=== PATIENT | female | born 1945 | race Caucasian/White ===

== ENCOUNTER → 2018-06-12 | Outpatient (CLI) | payer MEDICARE, OTHER ==
[~2018-06-12] MED LIST: ACET325 PO; ASCO500 PO; BENTYL20 MG PO; BENZ100A PO; Benefiber98 GM; CEPH500 PO; CO Q-10400 MG PO; CYAN500 PO; CYCL10 PO; Coughtab200 MG PO; DABI150C PO; DIAZ5 PO; ERGO400 PO; Elmiron100 MG; GLUCOSAMINE &1 EACH PO; HYDACE5 PO; HYDR1TAB94 PO; Hydrocodone Bita5 GM; IPRAIS NEB; KETO10 PO; LAVAP17G; LAVAP17G PO; LEVFLO500 PO; METF500 PO; MULTAQ; NEBI10 PO; NEBI5 PO; NYST100000 PO; OMEG1CAP30 PO; PENVK500 PO; PRED10 PO; RXHYDACE PO; SIME80CH PO; UBID10 PO; Ultram50 MG PO
[2018-06-12 17:03] LABS: BASOPHILS ABSOLUTE AUTO 0.04 K/mm3 (0.00-0.23); BASOPHILS PERCENT AUTO 1 % (0-2); EOSINOPHILS PERCENT AUTO 5 % (0-6); Hematocrit 34.7 % (33.0-51.0); Hemoglobin 11.6 g/dL (11.5-16.0); IMMATURE GRAN ABSOLUTE AUTO 0.01 K/mm3 (0.00-0.10); IMMATURE GRAN PERCENT AUTO 0 % (0-1); LYMPHOCYTES ABSOLUTE AUTO 1.51 K/mm3 (0.84-5.20); LYMPHOCYTES PERCENT AUTO 27 % (21-46); MONOCYTES ABSOLUTE AUTO 0.55 K/mm3 (0.16-1.47); MONOCYTES PERCENT AUTO 10 % (4-13); Mean Corpuscular HGB 31.7 pg (26.0-34.0); Mean Corpuscular HGB Conc 33.4 g/dL (31.5-36.5); Mean Corpuscular Volume 95 fL (80-100); Mean Platelet Volume 12.1 fL (9.1-12.4); NEUTROPHILS ABSOLUTE AUTO 3.24 K/mm3 (1.96-9.15); NEUTROPHILS PERCENT AUTO 57 % (41-73); Platelet Count 176 K/mm3 (150-400); RDW Coefficient Variation 12.6 % (11.7-14.2); RDW Standard Deviation 43.8 fL (35.1-46.3); Red Blood Cell Count 3.66 M/mm3 (3.80-5.20); White Blood Cell Count 5.65 K/mm3 (4.00-11.30)
[2018-06-12 17:10] LABS: Calcium, Blood 9.2 mg/dL (8.5-10.1); Creatinine, Blood 1.05 mg/dL (0.40-1.00); Potassium, Blood 4.3 mmol/L (3.5-5.5)
== END | disposition home or self-care (01) ==
LOC: LAB SHORT 16:58 → LAB EV 16:58
PROVIDERS: Physician Assistant Surgical
DX: R42 Dizziness and giddiness (principal); R53.83 Other fatigue
CPT/HCPCS: 80048; 84443; 85025

== ENCOUNTER 2018-08-05 23:16 | Emergency (ER) | payer MEDICARE, OTHER ==
[~2018-08-05] VITALS: Ht 157.5 cm; Wt 90.7 kg
[2018-08-05] MEDS ORDERED: GABA100 (23:41)
[2018-08-05 23:47] LABS: BASOPHILS ABSOLUTE AUTO 0.03 K/mm3 (0.00-0.23); BASOPHILS PERCENT AUTO 1 % (0-2); EOSINOPHILS ABSOLUTE AUTO 0.28 K/mm3 (0.00-0.68); EOSINOPHILS PERCENT AUTO 6 % (0-6); Hematocrit 35.3 % (33.0-51.0); Hemoglobin 11.4 g/dL (11.5-16.0); IMMATURE GRAN ABSOLUTE AUTO 0.01 K/mm3 (0.00-0.10); IMMATURE GRAN PERCENT AUTO 0 % (0-1); LYMPHOCYTES ABSOLUTE AUTO 1.19 K/mm3 (0.84-5.20); LYMPHOCYTES PERCENT AUTO 24 % (21-46); MONOCYTES ABSOLUTE AUTO 0.41 K/mm3 (0.16-1.47); MONOCYTES PERCENT AUTO 8 % (4-13); Mean Corpuscular HGB 30.9 pg (26.0-34.0); Mean Corpuscular HGB Conc 32.3 g/dL (31.5-36.5); Mean Corpuscular Volume 96 fL (80-100); Mean Platelet Volume 11.8 fL (9.1-12.4); NEUTROPHILS ABSOLUTE AUTO 3.12 K/mm3 (1.96-9.15); NEUTROPHILS PERCENT AUTO 62 % (41-73); Platelet Count 149 K/mm3 (150-400); RDW Coefficient Variation 12.8 % (11.7-14.2); RDW Standard Deviation 45.2 fL (35.1-46.3); Red Blood Cell Count 3.69 M/mm3 (3.80-5.20); White Blood Cell Count 5.04 K/mm3 (4.00-11.30)
[2018-08-06 00:03] LABS: Alanine Aminotransfer (ALT/SGP 22 U/L (12-78); Albumin, Blood 3.3 g/dL (3.4-5.0); Albumin/Globulin Ratio 0.8 (0.8-1.8); Alk Phos 63 U/L (50-136); Anion Gap 8 mmol/L (6-16); Aspartate Aminotrans (AST/SGOT 24 U/L (12-37); Bilirubin, Total 0.3 mg/dL (0.1-1.0); Blood Urea Nitrogen 25 mg/dL (8-24); Bun/Creatinine Ratio 26.3 (12.0-20.0); CO2, Blood 26 mmol/L (21-32); Calcium, Blood 8.7 mg/dL (8.5-10.1); Chloride, Blood 107 mmol/L (98-108); Creatinine, Blood 0.95 mg/dL (0.40-1.00); Ethanol (Alcohol), Blood, Med <3 mg/dL; Globulin, Blood 3.9 g/dL (2.2-4.0); Glomerular Filtration Rate >60 (60-); Glucose, Blood 170 mg/dL (70-99); Potassium, Blood 3.9 mmol/L (3.5-5.5); Sodium, Blood 141 mmol/L (136-145); Total Protein, Blood 7.2 g/dL (6.4-8.2); Troponin I <0.015 ng/mL (0.000-0.040)
[2018-08-06] MEDS ORDERED: Zofran8 MG PO (00:59)
[2018-08-06] MEDS ORDERED: MECL12.5 PO (00:59)
== END 2018-08-06 01:20 | disposition home or self-care (01) ==
LOC: ER 23:16
PROVIDERS: Emergency Medicine
DX: R42 Dizziness and giddiness (principal); I48.91 Unspecified atrial fibrillation; E11.9 Type 2 diabetes mellitus without complications; Z79.899 Other long term (current) drug therapy; Z79.84 Long term (current) use of oral hypoglycemic drugs
CPT/HCPCS: 36415; 70450; 80053; 84443; 84484; 85025; 93005; 93010; 96361; 96374; 96375; 99284-25; G0480; J1200; J2765; J7030

== ENCOUNTER 2018-12-25 14:33 | Emergency (ER) | payer MEDICARE, OTHER ==
[~2018-12-25] VITALS: Ht 157.5 cm; Wt 99.8 kg
[~2018-12-25 14:33] MED LIST changes: +GABA100; +MECL12.5 PO; +Zofran8 MG PO
[2018-12-25 15:15] LABS: BASOPHILS ABSOLUTE AUTO 0.06 K/mm3 (0.00-0.23); BASOPHILS PERCENT AUTO 1 % (0-2); EOSINOPHILS ABSOLUTE AUTO 0.45 K/mm3 (0.00-0.68); EOSINOPHILS PERCENT AUTO 8 % (0-6); Hematocrit 38.7 % (33.0-51.0); Hemoglobin 12.3 g/dL (11.5-16.0); IMMATURE GRAN ABSOLUTE AUTO 0.01 K/mm3 (0.00-0.10); IMMATURE GRAN PERCENT AUTO 0 % (0-1); LYMPHOCYTES ABSOLUTE AUTO 1.47 K/mm3 (0.84-5.20); LYMPHOCYTES PERCENT AUTO 25 % (21-46); MONOCYTES ABSOLUTE AUTO 0.61 K/mm3 (0.16-1.47); MONOCYTES PERCENT AUTO 10 % (4-13); Mean Corpuscular HGB 30.1 pg (26.0-34.0); Mean Corpuscular HGB Conc 31.8 g/dL (31.5-36.5); Mean Corpuscular Volume 95 fL (80-100); Mean Platelet Volume 12.2 fL (9.1-12.4); NEUTROPHILS ABSOLUTE AUTO 3.25 K/mm3 (1.96-9.15); NEUTROPHILS PERCENT AUTO 56 % (41-73); Platelet Count 195 K/mm3 (150-400); RDW Coefficient Variation 13.3 % (11.7-14.2); RDW Standard Deviation 46.7 fL (35.1-46.3); Red Blood Cell Count 4.09 M/mm3 (3.80-5.20); White Blood Cell Count 5.85 K/mm3 (4.00-11.30)
[2018-12-25 15:34] LABS: Alanine Aminotransfer (ALT/SGP 98 U/L (12-78); Albumin, Blood 3.4 g/dL (3.4-5.0); Albumin/Globulin Ratio 0.8 (0.8-1.8); Alk Phos 159 U/L (50-136); Anion Gap 10 mmol/L (6-16); Aspartate Aminotrans (AST/SGOT 72 U/L (12-37); Bilirubin, Total 0.9 mg/dL (0.1-1.0); Blood Urea Nitrogen 18 mg/dL (8-24); Bun/Creatinine Ratio 20.2 (12.0-20.0); CO2, Blood 24 mmol/L (21-32); Calcium, Blood 9.2 mg/dL (8.5-10.1); Chloride, Blood 106 mmol/L (98-108); Creatinine, Blood 0.89 mg/dL (0.40-1.00); Globulin, Blood 4.4 g/dL (2.2-4.0); Glomerular Filtration Rate >60 (60-); Glucose, Blood 109 mg/dL (70-99); Potassium, Blood 4.9 mmol/L (3.5-5.5); Sodium, Blood 140 mmol/L (136-145); Total Protein, Blood 7.8 g/dL (6.4-8.2)
[2018-12-25] MEDS ORDERED: NEBI10 PO (16:52)
[2018-12-25] MEDS ORDERED: METF500C PO (16:53)
[2018-12-25] MEDS ORDERED: DABI150C PO (16:53)
[2018-12-25] MEDS ORDERED: LISI5 PO (16:53)
[2018-12-25] MEDS ORDERED: GABA300 PO (16:53)
[2018-12-25] MEDS ORDERED: ATOR40TA PO (16:54)
[2018-12-25] MEDS ORDERED: UBID10 PO (16:55)
[2019-01-22] MEDS ORDERED: MAGOXI400 PO (14:52)
[2019-01-22] MEDS ORDERED: Zanaflex4 M1 PO (14:53)
[2019-01-22] MEDS ORDERED: LINZESS290 MCG PO (14:54)
== END 2018-12-25 17:29 | disposition home or self-care (01) ==
LOC: ER 14:33
PROVIDERS: Physician Assistant
DX: K59.00 Constipation, unspecified (principal); E11.9 Type 2 diabetes mellitus without complications; I48.91 Unspecified atrial fibrillation; Z88.5 Allergy status to narcotic agent; Z88.2 Allergy status to sulfonamides; Z88.8 Allergy status to other drugs, medicaments and biological substances; Z79.84 Long term (current) use of oral hypoglycemic drugs; Z79.899 Other long term (current) drug therapy
CPT/HCPCS: 36415; 74019; 74176; 80053; 83690; 85025; 99284-25

== ENCOUNTER 2019-02-03 10:41 | Day surgery (SDC) | payer MEDICARE, OTHER ==
[~2019-02-03] VITALS: Ht 157.5 cm; Wt 100.0 kg
[~2019-02-03 10:41] MED LIST changes: +ATOR40TA PO; +GABA300 PO; +LINZESS290 MCG PO; +LISI5 PO; +MAGOXI400 PO; +METF500C PO; +Zanaflex4 M1 PO
--- NOTE | 2019-02-03 13:23 | NUR ---
02/03/19 1323 Meche Vieira PATIENT REFUSED MULTIPLE OFFERS OF PO FLUIDS.
== END 2019-02-03 13:30 | disposition home or self-care (01) ==
LOC: ORSCSDS 10:41
PROVIDERS: Internal Medicine Gastroenterology
PROC: 0DBE8ZX Excision of Large Intestine, Via Natural or Artificial Opening Endoscopic, Diagnostic (ICD-10-PCS; principal; 2019-02-03 12:00)
PROC: 0DBN8ZX Excision of Sigmoid Colon, Via Natural or Artificial Opening Endoscopic, Diagnostic (ICD-10-PCS; principal; 2019-02-03 12:00)
DX: R19.4 Change in bowel habit (principal); K59.00 Constipation, unspecified; D12.8 Benign neoplasm of rectum; R14.0 Abdominal distension (gaseous); K64.8 Other hemorrhoids; I48.91 Unspecified atrial fibrillation; E11.9 Type 2 diabetes mellitus without complications; E03.9 Hypothyroidism, unspecified; E66.01 Morbid (severe) obesity due to excess calories; Z68.39 Body mass index [BMI] 39.0-39.9, adult; Z79.899 Other long term (current) drug therapy
CPT/HCPCS: 82947; 88305; J7120

== ENCOUNTER → 2022-07-24 | Outpatient (CLI) | payer MEDICARE, OTHER ==
[2022-07-24 12:25] LABS: Appearance, Urine Clear (Clear); Bilirubin, Urine Neg (Neg); Blood, Urine Neg (Neg); Color, Urine Yellow (P-Yellow); Glucose Qualitative, Urine Neg (Neg); Ketones, Urine Neg (Neg); Leukocyte Esterase, Urine 1+ (Neg); Nitrite, Urine Neg (Neg); Protein, Urine Neg (Neg); Specific Gravity, Urine 1.015 (1.003-1.022); Urobilinogen, Urine NORM (Normal)
[2022-07-24 12:36] LABS: Bacteria Few /hpf; Red Blood Cells, Urine 0-2 /hpf (0-2); Squamous Epithelial Cells Few /hpf (Few); Transitional Epithelial Cells Rare /hpf (0-Rare)
== END | disposition home or self-care (01) ==
LOC: LAB SHORT 09:45
PROVIDERS: Family Medicine
DX: R30.9 Painful micturition, unspecified (principal)
CPT/HCPCS: 81001; 87086; 87147

== ENCOUNTER 2022-09-05 08:37 | Day surgery (SDC) | payer MEDICARE, OTHER ==
[~2022-09-05] VITALS: Ht 157.5 cm; Wt 66.5 kg
[2022-09-05] MEDS ORDERED: Bisoprolol Fumar5 MG PO (09:28)
[2022-09-05] MEDS ORDERED: DIGOX125 MC1 PO (09:28)
[2022-09-05] MEDS ORDERED: Florastor250 MG PO (09:28)
[2022-09-05] MEDS ORDERED: VALS80 PO (09:29)
== END 2022-09-05 10:35 | disposition home or self-care (01) ==
LOC: ORSCSDS 08:37
PROVIDERS: Ophthalmology
PROC: 08RK3JZ Replacement of Left Lens with Synthetic Substitute, Percutaneous Approach (ICD-10-PCS; principal; 2022-09-05 10:00)
DX: H25.12 Age-related nuclear cataract, left eye (principal); I48.91 Unspecified atrial fibrillation; E11.9 Type 2 diabetes mellitus without complications; Z79.899 Other long term (current) drug therapy
CPT/HCPCS: 82947; J2001; J2250; J3010; J3301; J7040; V2632

== ENCOUNTER 2022-09-12 08:07 | Day surgery (SDC) | payer MEDICARE, OTHER ==
[~2022-09-12] VITALS: Ht 152.4 cm; Wt 66.6 kg
[~2022-09-12 08:07] MED LIST changes: +Bisoprolol Fumar5 MG PO; +DIGOX125 MC1 PO; +Florastor250 MG PO; +VALS80 PO
--- NOTE | 2022-09-12 10:20 | NUR ---
09/12/22 1020 Jose Genao PT D/C'D VIA WALKER TO [facility] WITH SOCIAL SERVICES AIDE, PT V/U OF D/C INSTRUCTIONS, DENIES PAIN, N/V, DIZZINESS, RESP CTA ON RA, EYE SHIELD CDI, PIV D/C'D PRESSURE APPLIED 3-5MIN IV SITE COVERED WITH 2X2 GAUZE AND COBAN, WALKER AND PERSONAL BELONGINGS GIVEN TO PT, PT D/C'D IN NAD.
== END 2022-09-12 10:15 | disposition home or self-care (01) ==
LOC: ORSCSDS 08:07
PROVIDERS: Ophthalmology
PROC: 08RJ3JZ Replacement of Right Lens with Synthetic Substitute, Percutaneous Approach (ICD-10-PCS; principal; 2022-09-12 09:30)
DX: H25.11 Age-related nuclear cataract, right eye (principal); I48.91 Unspecified atrial fibrillation; E11.9 Type 2 diabetes mellitus without complications; Z79.899 Other long term (current) drug therapy
CPT/HCPCS: 82947; J2001; J2250; J3010; J3301; J7040; V2632

== ENCOUNTER → 2023-04-29 | Outpatient (CLI) | payer MEDICARE, OTHER ==
[2023-04-29 13:46] LABS: Calcium, Urine <5.0 mg/dL (< 17.5); Calcium, Urine Calculation Unable to Calculate mg/24hrs (42.0-353.0)
== END | disposition home or self-care (01) ==
LOC: LAB SHORT 09:30
PROVIDERS: Internal Medicine Endocrinology, Diabetes & Metabolism
DX: E21.3 Hyperparathyroidism, unspecified (principal)
CPT/HCPCS: 81050; 82340; 82570

== ENCOUNTER → 2023-12-30 | Outpatient (CLI) | payer MEDICARE, OTHER ==
[2023-12-30 18:09] LABS: Source, Urine Clean Catch
[2023-12-30 18:16] LABS: Appearance, Urine Turbid (Clear); Bilirubin, Urine Neg (Neg); Blood, Urine Neg (Neg); Color, Urine Yellow (P-Yellow); Glucose Qualitative, Urine 3+ (Neg); Ketones, Urine Neg (Neg); Leukocyte Esterase, Urine 2+ (Neg); Nitrite, Urine Neg (Neg); Protein, Urine 2+ (Neg); Specific Gravity, Urine 1.025 (1.003-1.022); Urobilinogen, Urine NORM (Normal)
[2023-12-30 18:34] LABS: Amorphous Heavy (0-Heavy); Bacteria Mod /hpf; Squamous Epithelial Cells Mod /hpf (Few); Transitional Epithelial Cells Rare /hpf (0-Rare)
== END | disposition home or self-care (01) ==
LOC: LAB SHORT 14:49 → LAB 14:49
PROVIDERS: Family Medicine
DX: N17.9 Acute kidney failure, unspecified (principal)
CPT/HCPCS: 81001; 87086

== ENCOUNTER 2024-07-21 10:51 | Emergency (ER) | payer MEDICARE, OTHER ==
[~2024-07-21] VITALS: Ht 154.9 cm; Wt 78.0 kg
[2024-07-21 12:21] LABS: Influenza A, PCR NEGATIVE (NEGATIVE); Influenza B, PCR NEGATIVE (NEGATIVE); Resp Syncytial Virus, PCR NEGATIVE (NEGATIVE)
[2024-07-21 12:32] LABS: SARS-Cov-2 (COVID-19) PCR, MMC POSITIVE (NEGATIVE)
[2024-07-21 13:49] VITALS: BP 146/67
== END 2024-07-21 14:00 | disposition home or self-care (01) ==
LOC: ER 10:51
PROVIDERS: Emergency Medicine
DX: U07.1 COVID-19 (principal); E11.9 Type 2 diabetes mellitus without complications; I48.91 Unspecified atrial fibrillation
CPT/HCPCS: 0241U; 71046; 99284-25

== ENCOUNTER → 2025-07-07 | Outpatient (CLI) | payer MEDICARE, OTHER | LOC: LAB 10:55 → LAB SHORT 10:55 | DX: M79.671 Pain in right foot (principal) | CPT/HCPCS: 84550 ==